=== PATIENT | male | born 2000 | race Hispanic/Latino ===

== ENCOUNTER 2024-04-25 20:59 | Emergency (ER) | payer SELFPAY ==
[2024-04-25 23:55] LABS: Specific Gravity 1.026 (1.005-1.030); Sqamous Epithelial None Seen /HPF (None Seen); Urine Bacteria None Seen /HPF (<20); Urine Bilirubin NEGATIVE (Negative); Urine Blood Trace (Negative); Urine Clarity Clear (Clear); Urine Color Light-Yellow (Yellow); Urine Culture Reflex Order NOT NEEDED; Urine Glucose NEGATIVE (Negative); Urine Ketones NEGATIVE (Negative); Urine Microscopic Reflex YN ORDER UMIC; Urine Mucus Slight /HPF (None Seen); Urine Nitrite NEGATIVE (Negative); Urine Protein NEGATIVE (Negative); Urine Urobilinogen Normal (Normal); Urine WBC <5 /HPF (<5)
[2024-04-25 23:56] LABS: Absolute Eosinophils 0.2 K/uL (0-0.5); Absolute Lymphocytes (CBC) 2.2 K/uL (0.7-4.9); Absolute Monocytes 0.5 K/uL (0.1-1.3); Basophils % 0.4 % (0-1.3); Eosinophils % 2.9 % (0-4.4); Hematocrit 47.3 % (39.6-49.0); Lymphocytes % 31.7 % (15.3-44.8); MCH 30.2 pg (27.0-35.0); MCHC 33.9 g/dL (32.0-36.0); MCV 89.2 fL (80-100); MPV 8.8 fL (7.6-11.3); Monocytes % 7.5 % (3.3-12.3); Neutrophils % 57.5 % (41.7-73.7); Nucleated Red Blood Cells % 0.2 % (0-0); Platelets 210 thou/uL (152-406); RBC Red Blood Cell Count 5.31 M/uL (4.33-5.43)
[2024-04-26 00:08] LABS: Albumin 3.8 g/dL (3.4-5.0); Anion Gap 7.9 mEq/L (5.0-15.0); Bilirubin Total 0.4 mg/dL (0.2-1.0); Potassium 3.9 mEq/L (3.5-5.1); Protein, Total 7.8 g/dL (6.4-8.2)
[2024-04-26] MEDS ORDERED: KETOROLAC 30 MG/ML INJ ONE (01:29)
[2024-04-26] MEDS ORDERED: NA CHLORIDE 0.9% 1,000 ML ONE (01:29)
--- NOTE | 2024-04-26 03:54 | EDPHYS ---
Physician Documentation [facility] [place] Name: Andrew Cobian Age: 23 yrs Sex: Male : 2000 Arrival Date: 04/25/2024 Time: 20:59 Bed 7 Private MD: ED Physician Chau Alvarez HPI: 04/26 00:00 This 23 yrs old Male presents to ER via Ambulatory with complaints of cp Abdominal Pain. 00:00 The patient presents with abdominal pain right side abdomen. cp 00:00 Onset: The symptoms/episode began/occurred 1 week(s) ago. The symptoms do not radiate. cp Associated signs and symptoms: Pertinent negatives: constipation, diarrhea, fever, hematuria, vomiting. The symptoms are described as constant, worsening. Historical: - Allergies: 04/25 21:35 No Known Allergies; bm8 - Home Meds: 21:35 None [Active]; bm8 - PMHx: 21:35 None; bm8 - PSHx: 21:35 None; bm8 - Immunization history:: Adult Immunizations up to date. - Infectious Disease History:: Denies. - Social history:: Smoking status: Patient denies any tobacco usage or history of. Patient/guardian denies using alcohol, street drugs. ROS: 04/26 00:05 Abdomen/GI: Positive for abdominal pain, cp 00:05 Constitutional: Negative for body aches, chills, fever, poor PO intake, cp 00:05 Respiratory: Negative for cough, shortness of breath, wheezing, cp Exam: 00:10 Constitutional: The patient appears in no acute distress, alert, awake, non-toxic, well cp developed, well nourished, obese, 00:10 Head/Face: Normocephalic, atraumatic. cp 00:10 Eyes: Periorbital structures: appear normal, Conjunctiva: normal, no exudate, no injection, Sclera: no appreciated abnormality, Lids and lashes: appear normal, bilaterally, 00:10 ENT: External ear(s): are unremarkable, Nose: is normal, Mouth: Lips: moist, Oral mucosa: moist, Posterior pharynx: Airway: no evidence of obstruction, patent, 00:10 Chest/axilla: Inspection: normal, 00:10 Cardiovascular: Rate: normal, Rhythm: regular, 00:10 Respiratory: the patient does not display signs of respiratory distress, Respirations: normal, no use of accessory muscles, no retractions, labored breathing, is not present, Breath sounds: are clear throughout, no decreased breath sounds, no stridor, no wheezing, 00:10 Abdomen/GI: Bowel sounds: active, all quadrants, Palpation: soft, in all quadrants, mild abdominal tenderness, in the right mid abdomen, rebound tenderness, is not appreciated, involuntary guarding, is not appreciated, 00:10 Back: pain, is absent, ROM is normal, Vital Signs: 04/25 21:33 BP 142 / 102; Pulse 81; Resp 18; Temp 98.3; Pulse Ox 100% ; Weight 108.86 kg; Height 5 bm8 ft. 4 in. ; Pain 11/20; 04/26 02:18 BP 116 / 87; Pulse 63; Resp 16; Pulse Ox 98% on R/A; dd2 02:54 BP 109 / 60; Pulse 80; Resp 16; Temp 98.3; Pulse Ox 99% ; Pain 210; bm8 03:48 BP 134 / 85; Pulse 69; Resp 16; Pulse Ox 99% on R/A; dd2 04/25 21:33 Body Mass Index 40.48 (108.86 kg, 164 cm) bm8 04/25 21:33 Pain Scale: Adult bm8 02:54 Pain Scale: Adult bm8 [place] Coma Score: 01:36 Eye Response: spontaneous(4). Motor Response: obeys commands(6). Verbal Response: dd2 oriented(5). Total: 15. 02:54 Eye Response: spontaneous(4). Motor Response: obeys commands(6). Verbal Response: bm8 oriented(5). Total: 15. MDM: 04/25 21:43 Medical Screening Exam initiated cp 04/26 03:50 Data reviewed: vital signs, nurses notes. ED course: Patient signed out to me pending ec2 CT abdomen pelvis which was negative. Lab work is remarkable for reassuring metabolic profile, urine that is noninfectious appearing, lipase within normal ranges and reassuring CBC.. 03:53 ED course: On reassessment patient is well-appearing no acute distress. Will discharge ec2 home of the patient follow-up PCP. Return precautions given.. 04/25 21:43 Order name: CBC with Diff; Complete Time: 00:19 cp 04/26 00:20 Interpretation: Reviewed. cp 04/25 21:43 Order name: CMP; Complete Time: 00:19 cp 04/26 00:19 Interpretation: Normal except: CL 108; GLOB 4.0; A/G 1.0. cp 04/25 21:43 Order name: Lipase; Complete Time: 00:19 cp 04/25 21:43 Order name: Urinalysis w/ reflexes; Complete Time: 00:08 cp 04/26 00:08 Interpretation: Normal except: UBLD Trace; URBC 5-10. cp 04/26 00:08 Order name: CT Abd/Pelvis - IV Contrast Only cp 04/25 21:43 Order name: IV Saline Lock; Complete Time: 23:36 cp 04/25 21:43 Order name: Labs collected and sent; Complete Time: 23:36 cp Administered Medications: 01:37 Drug: Ketorolac IVP 15 mg IVP once Route: IVP; Site: right antecubital; dd2 02:55 Follow up: Response: No adverse reaction bm8 01:38 Drug: NS 0.9% IV 1000 ml IV at 1 bolus Per protocol; to be given as a bolus over 60 dd2 minutes Route: IV; Rate: 1 bolus; Site: right antecubital; 02:55 Follow up: Response: No adverse reaction; IV Status: Completed infusion bm8 Disposition: 03:53 I reviewed the patient's care provided by Advanced Practice Provider \T\ agree w/ the ec2 diagnosis \T\ care plan. I personally saw the pt \T\ performed a substantive portion of the visit, incldng all aspects of the (History/Exam/Medical Decision Making). Disposition Summary: 04/26/24 03:54 Discharge Ordered Notes: Location: Home ec2 Condition: Stable ec2 Diagnosis - Abdominal pain, Generalized ec2 Followup: ec2 - With: Private Physician - When: - Reason: Re-evaluation by your physician Discharge Instructions: - Discharge Summary Sheet ec2 - Abdominal Pain, Adult ec2 Forms: - Medication Reconciliation Form ec2 - Antibiotic Education ec2 - Prescription Opioid Use ec2 - Patient Portal Instructions ec2 - Leadership Thank You Letter ec2 Prescriptions: - Zofran 4 mg Oral Tablet - take 1 tablet ORAL route every 12 hours As needed; 20 tablet; Refills: 0, ec2 Product Selection Permitted - methocarbamol 500 mg Oral tablet - take 2 tablets ORAL route 4 times per day; 20 tablet; Refills: 0, Product ec2 Selection Permitted Signatures: Dispatcher [employer] Bill Ayon PA PA cp Corral, Edwin, MD MD ec2 Humberto Rees RN RN bm8 FAMILIA MENDOZA RN RN dd2
--- NOTE | 2024-04-26 03:54 | ER ---
Nurse's Notes [facility] Name: Andrew Cobian Age: 23 yrs Sex: Male : 2000 Arrival Date: 04/25/2024 Time: 20:59 Bed 7 Private MD: Diagnosis: Abdominal pain, Generalized Presentation: 04/25 21:33 Chief complaint: Patient states: I have right sided abd pain that is getting worse for bm8 1 week. Coronavirus screen: At this time, the client does not indicate any symptoms associated with coronavirus-19. Ebola Screen: Patient negative for fever greater than or equal to 101.5 degrees Fahrenheit, and additional compatible Ebola Virus Disease symptoms Patient denies exposure to infectious person. Patient denies travel to an Ebola-affected area in the 21 days before illness onset. No symptoms or risks identified at this time. Initial Sepsis Screen: Does the patient meet any 2 criteria? No. Patient's initial sepsis screen is negative. Does the patient have a suspected source of infection? No. Patient's initial sepsis screen is negative. Risk Assessment: Do you want to hurt yourself or someone else? Patient reports no desire to harm self or others. Onset of symptoms was April 20, 2024. 21:33 Method Of Arrival: Ambulatory bm8 21:33 Acuity: EVELIA 3 bm8 Triage Assessment: 21:35 General: Appears in no apparent distress. comfortable, Behavior is calm, cooperative, bm8 appropriate for age. Pain: Complains of pain in anterior aspect of right lateral abdomen, right upper quadrant and right lower quadrant Pain currently is 10 out of 10 on a pain scale. Quality of pain is described as aching, throbbing. EENT: No deficits noted. No signs and/or symptoms were reported regarding the EENT system. Neuro: No deficits noted. Level of Consciousness is awake, alert, obeys commands, Oriented to person, place, time, situation, Appropriate for age. Cardiovascular: Capillary refill < 3 seconds in bilateral fingers Patient's skin is warm and dry. Respiratory: Airway is patent Trachea midline Respiratory effort is even, unlabored, Respiratory pattern is regular, symmetrical, Breath sounds are clear bilaterally. GI: Abdomen is flat, non-distended, Bowel sounds present X 4 quads. Reports lower abdominal pain, upper abdominal pain, nausea, Pain is 10 out of 10 on a pain scale. GI: Patient currently denies cramping, diarrhea, epigastric pain. : No signs and/or symptoms were reported regarding the genitourinary system. Derm: No signs and/or symptoms reported regarding the dermatologic system. Musculoskeletal: No deficits noted. No signs and/or symptoms reported regarding the musculoskeletal system. Historical: - Allergies: 21:35 No Known Allergies; bm8 - Home Meds: 21:35 None [Active]; bm8 - PMHx: 21:35 None; bm8 - PSHx: 21:35 None; bm8 - Immunization history:: Adult Immunizations up to date. - Infectious Disease History:: Denies. - Social history:: Smoking status: Patient denies any tobacco usage or history of. Patient/guardian denies using alcohol, street drugs. Screenin/16 01:36 [facility] ED Fall Risk Assessment (Adult) History of falling in the last 3 months, dd2 including since admission No falls in past 3 months (0 pts) Confusion or Disorientation No (0 pts) Intoxicated or Sedated No (0 pts) Impaired Gait No (0 pts) Mobility Assist Device Used No (0 pt) Altered Elimination No (0 pt) Score/Fall Risk Level 0 - 2 = Low Risk Oriented to surroundings, Maintained a safe environment, Educated pt \T\ family on fall prevention, incl call for assistance when getting out of bed, Assessed \T\ reinforced patient's understanding of fall precautions, Hourly rounding (assess needs \T\ fall precautionary measures) done. Abuse screen: Denies threats or abuse. Denies injuries from another. Nutritional screening: No deficits noted. Tuberculosis screening: No symptoms or risk factors identified. Assessment: 01:21 Reassessment: PT PLACED IN ROOM 7. ASSUMING PT CARE AT THIS TIME. dd2 01:36 General: Appears in no apparent distress. uncomfortable, Behavior is calm, cooperative, dd2 appropriate for age. Pain: Complains of pain in right lower quadrant and right upper quadrant Pain does not radiate. Pain currently is 10 out of 10 on a pain scale. Quality of pain is described as crampy, Pain began X1 WEEK. Neuro: [place] Agitation-Sedation Scale (RASS): 0 - Alert and Calm Level of Consciousness is awake, alert, obeys commands, Oriented to person, place, time, situation, Appropriate for age. Cardiovascular: No deficits noted. Patient's skin is warm and dry. Respiratory: No deficits noted. Airway is patent Respiratory effort is even, unlabored, Respiratory pattern is regular, symmetrical. GI: Abdomen is round non-distended, Bowel sounds present X 4 quads. Abdomen is tender to palpation in right upper quadrant and right lower quadrant Reports lower abdominal pain, upper abdominal pain. GI:. GI: Patient currently denies constipation, diarrhea, nausea, vomiting. : No deficits noted. No signs and/or symptoms were reported regarding the genitourinary system. EENT: No deficits noted. No signs and/or symptoms were reported regarding the EENT system. Derm: No deficits noted. No signs and/or symptoms reported regarding the dermatologic system. Musculoskeletal: No deficits noted. No signs and/or symptoms reported regarding the musculoskeletal system. Circulation, motion, and sensation intact. Range of motion: intact in all extremities. 02:54 Reassessment: Patient appears in no apparent distress at this time. Patient and/or bm8 family updated on plan of care and expected duration. Pain level reassessed. Patient is alert, oriented x 3, equal unlabored respirations, skin warm/dry/pink. Patient states feeling better. Patient states symptoms have improved. Vital Signs: 04/25 21:33 BP 142 / 102; Pulse 81; Resp 18; Temp 98.3; Pulse Ox 100% ; Weight 108.86 kg; Height 5 bm8 ft. 4 in. ; Pain 10/10; 04/26 02:18 BP 116 / 87; Pulse 63; Resp 16; Pulse Ox 98% on R/A; dd2 02:54 BP 109 / 60; Pulse 80; Resp 16; Temp 98.3; Pulse Ox 99% ; Pain 2/10; bm8 03:48 BP 134 / 85; Pulse 69; Resp 16; Pulse Ox 99% on R/A; dd2 04/25 21:33 Body Mass Index 40.48 (108.86 kg, 164 cm) bm8 04/25 21:33 Pain Scale: Adult bm8 02:54 Pain Scale: Adult bm8 [place] Coma Score: 01:36 Eye Response: spontaneous(4). Motor Response: obeys commands(6). Verbal Response: dd2 oriented(5). Total: 15. 02:54 Eye Response: spontaneous(4). Motor Response: obeys commands(6). Verbal Response: bm8 oriented(5). Total: 15. ED Course: 04/25 21:05 Patient arrived in ED. im 21:09 Bill Mathis PA is PHCP. cp 21:09 Chau Alvarez MD is Attending Physician. cp 21:35 Triage completed. bm8 21:35 Arm band placed on right wrist. bm8 23:36 Inserted saline lock: 20 gauge in right antecubital area, using aseptic technique. af3 Blood collected. Flushed with 10 mL NS. 04/26 01:20 FAMILIA MENDOZA, RN is Primary Nurse. dd2 01:30 CT Abd/Pelvis - IV Contrast Only In Process Unspecified. EDMS 01:36 Patient has correct armband on for positive identification. Bed in low position. Call dd2 light in reach. Side rails up X 1. Client placed on continuous cardiac and pulse oximetry monitoring. NIBP monitoring applied. Door closed. Noise minimized. Warm blanket given. Pillow given. Verbal reassurance given. 01:36 No provider procedures requiring assistance completed. Patient maintains SpO2 dd2 saturation greater than 95% on room air. 04:31 IV discontinued, intact, bleeding controlled, No redness/swelling at site. Pressure bm8 dressing applied. Administered Medications: 01:37 Drug: Ketorolac IVP 15 mg IVP once Route: IVP; Site: right antecubital; dd2 02:55 Follow up: Response: No adverse reaction bm8 01:38 Drug: NS 0.9% IV 1000 ml IV at 1 bolus Per protocol; to be given as a bolus over 60 dd2 minutes Route: IV; Rate: 1 bolus; Site: right antecubital; 02:55 Follow up: Response: No adverse reaction; IV Status: Completed infusion bm8 Medication: 01:36 VIS not applicable for this client. dd2 Outcome: 03:54 Discharge ordered by . ec2 04:31 Discharged to home ambulatory, bm8 04:31 Condition: stable 04:31 Discharge instructions given to patient, Instructed on discharge instructions, follow up and referral plans. medication usage, Demonstrated understanding of instructions, follow-up care, medications, Prescriptions given X 2, 04:32 Patient left the ED. bm8 Signatures: Dispatcher [employer] EDVT Page, Bill, PA PA cp Azul Perez Edwin, MD MD ec2 Humberto Rees, RN RN bm8 Emma Pugh af3 FAMILIA MENDOZA RN RN dd2
[2024-04-26 04:36] VITALS: TEMP 98.3
[2024-04-26 04:39] VITALS: O2SAT 99
[2024-04-26 04:40] VITALS: BP 134/85
--- NOTE | 2024-04-26 06:58 | RAD REPORT ---
EXAM DESCRIPTION: Abdomen Pelvis W Contrast RadLex: CT ABDOMEN PELVIS WITH IV CONTRAST CLINICAL HISTORY: 23 years Male; right side abdominal pain; IV ONLY Bed Name: [id number] TECHNIQUE: CT of the abdomen and pelvis [with] intravenous contrast. All CT scans at this facility use dose modulation, iterative reconstruction, and/or weight based dosi ng when appropriate to reduce radiation dose to as low as reasonably achievable. COMPARISON: None. FINDINGS: Lower thorax: Lung bases are clear Abdomen: Stomach: Within normal limits Liver: No focal lesions. No intrahepatic ductal distention. Gallbladder: Nondistended Pancreas: Within normal limits Spleen: Within normal limits Right kidney: No hydronephrosis. No focal lesion. Left kidney: No hydronephrosis. No focal lesion. Adrenal glands: Within normal limits Vascular structures: Within normal limits Nodes: No lymphadenopathy by size criteria Pelvis: Small bowel: No significant distention. Appendix: Within normal limits Colon: No distention or acute pericolonic edema. Peritoneum: No free intraperitoneal fluid or air. Bones: No acute bone findings. Bladder: Unremarkable. Reproductive organs: No acute findings. IMPRESSION: No acute abdominopelvic findings. Normal appendix. Electronically signed by: Amanda Vega MD 04/26/2024 03:29 AM CDT TYG Due to temporary technical issues with the PACS/[employer] reporting system, reports are being yany d by the in-house radiologist without review as a courtesy to ensure prompt reporting the interpreting radiologist is fully responsible for the content of the report. Transcribed Date/Time: 04/26/2024 6:58 AM
== END 2024-04-26 04:32 | disposition home or self-care (01) ==
LOC: ER 20:59
DX: R10.84 Generalized abdominal pain (principal)
CPT/HCPCS: 36415; 74177; 80053; 81001; 83690; 85025; 96361; 96374; 99284; J7030; Q9967